=== PATIENT | male | born 2000 | race Caucasian/White ===

== ENCOUNTER 2025-06-29 02:59 | Emergency (ER) | payer SELFPAY ==
[~2025-06-29] VITALS: Ht 180.3 cm; Wt 110.0 kg
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
[2025-06-29 03:55] VITALS: BP 131/80; PULSE 74; RESP 16; TEMP 98.1; O2SAT 99
== END 2025-06-29 03:57 | disposition home or self-care (01) ==
LOC: ER 03:00
DX: Z02.89 Encounter for other administrative examinations (principal); V89.2XXA Person injured in unspecified motor-vehicle accident, traffic, initial encounter; Y93.89 Activity, other specified; Y92.89 Other specified places as the place of occurrence of the external cause; Y99.8 Other external cause status
CPT/HCPCS: 99283